=== PATIENT | male | born 1965 | race Caucasian/White ===

== ENCOUNTER 2018-05-21 09:31 | Emergency (ER) | payer OTHER ==
[2018-05-21 09:49] VITALS: TEMP 98; BMI 31.6
--- NOTE | 2018-05-21 10:17 | PDOC ---
History of Present Illness - General Chief Complaint: Hematuria Stated Complaint: BLOOD IN URINE Time Seen by Provider: 05/21/18 10:17 Past History - Past Medical History Allergies/Adverse Reactions: Allergies Allergy/AdvReac Type Severity Reaction Status Date / Time No Known Allergies Allergy Verified 05/21/18 09:44 Home Medications: Ambulatory Orders No Home Medications 0 dose .ROUTE UTDICT 05/21/12 Asthma: No COPD: No Diabetes: No HTN: No Other medical history: blood in ejaculate - Suicide/Smoking/Psychosocial Hx Smoking Status: No Smoking History: Never smoked Number of Cigarettes Smoked Daily: 0 Drug/Substance Use Hx: No *Physical Exam - Vital Signs Last Vital Signs Temp Pulse Resp BP Pulse Ox 98 F 78 16 128/69 97 05/21/18 09:48 05/21/18 09:48 05/21/18 09:48 05/21/18 09:48 05/21/18 09:48
--- NOTE | 2018-05-21 11:12 | PDOC ---
History of Present Illness - General Chief Complaint: Hematuria Stated Complaint: BLOOD IN URINE Time Seen by Provider: 05/21/18 10:17 - History of Present Illness Initial Comments: 05/21/18 11:08 53 M with no PMH presents to ED with hematuria and lower back pain. Pt states that his hematuria started about 6 weeks ago when he noticed blood in his urine and in his ejaculate. He saw his PMD, who ordered bloodwork, UA, and scrotal US. He states that this was all normal. His symptoms cleared up on their own, but over the past 3 days he began to notice blood in his urine again. He states that when he urinates, blood comes out first, followed by urine. Denies any flank pain but states that he has pressure and a "fullness" in his sacrum near his tailbone. Denies any h/o prostate problems. Pt denies dysuria. Denies h/o STD. Not sexually active at this time. Past History - Past Medical History Allergies/Adverse Reactions: Allergies Allergy/AdvReac Type Severity Reaction Status Date / Time No Known Allergies Allergy Verified 05/21/18 09:44 Home Medications: Ambulatory Orders No Home Medications 0 dose .ROUTE UTDICT 05/21/12 Asthma: No COPD: No Diabetes: No HTN: No Other medical history: blood in ejaculate - Suicide/Smoking/Psychosocial Hx Smoking Status: No Smoking History: Never smoked Number of Cigarettes Smoked Daily: 0 Drug/Substance Use Hx: No Review of Systems - Review of Systems Comments:: 05/21/18 11:10 GENERAL/CONSTITUTIONAL: No fever or chills. No weakness. HEAD, EYES, EARS, NOSE AND THROAT: No change in vision. No ear pain or discharge. No sore throat. CARDIOVASCULAR: No chest pain, no shortness of breath, no loss of consciousness RESPIRATORY: No cough, wheezing, or hemoptysis. GASTROINTESTINAL: No nausea, vomiting, diarrhea or constipation. GENITOURINARY: + hematuria MUSCULOSKELETAL: No joint or muscle swelling or pain. No neck or back pain. SKIN: No rash NEUROLOGIC: No vertigo, no change in strength/sensation. ENDOCRINE: No increased thirst. No abnormal weight change. HEMATOLOGIC/LYMPHATIC: No anemia, easy bleeding, or history of blood clots. ALLERGIC/IMMUNOLOGIC: No hives or skin allergy. *Physical Exam - Vital Signs Last Vital Signs Temp Pulse Resp BP Pulse Ox 98 F 78 16 128/69 97 05/21/18 09:48 05/21/18 09:48 05/21/18 09:48 05/21/18 09:48 05/21/18 09:48 - Physical Exam Comments: 05/21/18 11:11 "GENERAL: Awake, alert, and fully oriented, in no acute distress. HEAD: No signs of trauma EYES: PERRLA, EOMI, sclera anicteric, conjunctiva clear ENT: Auricles normal inspection, hearing grossly normal, nares patent, oropharynx clear without exudates. Moist mucosa NECK: Nontender, no stepoffs, Normal ROM, supple, no lymphadenopathy, JVD, or masses LUNGS: Breath sounds equal, clear to auscultation bilaterally. No wheezes, and no crackles HEART: Regular rate and rhythm, normal S1 and S2, no murmurs, rubs or gallops ABDOMEN: Soft, nontender, normoactive bowel sounds. No guarding, no rebound. No masses EXTREMITIES: Normal range of motion, no edema. No clubbing or cyanosis. No cords, erythema, or tenderness NEUROLOGICAL: Cranial nerves II through XII intact. 5/5 strength and sensation in all extremities, Normal speech, normal gait, normal cerebellar function SKIN: Warm, Dry, normal turgor, no rashes or lesions noted. : circumcised penis, normal scrotum, no tenderness or swelling, no masses, normal cremasteric reflex, no inguinal hernia RECTAL: enlarged prostate without bogginess or tenderness ED Treatment Course - LABORATORY CBC & Chemistry Diagram: 05/21/18 12:30 05/21/18 12:30 - RADIOLOGY Radiology Studies Ordered: Category Date Time Status ABDOMEN & PELVIS CT WITH CONTR [CT] Stat CT Scan 05/21/18 11:04 Ordered Medical Decision Making - Medical Decision Making 05/21/18 11:11 53 M with hematuria and lower back pain. Exam with normal scrotal exam but enlarged prostate. Possible malignancy vs infectious process. - Labs, UA, UCx - HIV, GC/CT - CTAP w/ IV contrast 05/21/18 13:54 Labs wnl, pending CT 05/21/18 17:54 CT shows L adrenal nodule, hepatic cyst, L renal cyst Will give pt PMD and urology f/u Pt is well appearing, with normal vitals. Clinically stable for DC at this time. I discussed the physical exam findings, ancillary test results and final diagnoses with the patient. I answered all of the patient's questions. The patient was satisfied with the care received and felt comfortable with the discharge plan and treatment plan. The patient agrees to follow up with the primary care physician within 24-72 hours. *DC/Admit/Observation/Transfer Diagnosis at time of Disposition: Hematuria - Discharge Dispostion Disposition: HOME - Referrals Referrals: Agustin Dos Santos MD [Primary Care Provider] - Mickey Simmons MD [Staff Physician] - - Patient Instructions Printed Discharge Instructions: DI for Hematuria Additional Instructions: Your CT scan today showed a cyst in your liver, as well as a cyst and a nodule in your left kidney. While these are most likely benign, you must follow up with your primary doctor to have these monitored over time. Please follow up with a urologist for further evaluation of the blood in your urine. This can sometimes be a sign of cancer. Call the number provided to make an appointment. If you experience any fevers, pain with urination, abdominal or flank pain, or any other concerning symptoms, return to the ER immediately. - Post Discharge Activity Forms/Work/School Notes: Back to Work - Attestations Physician Attestion: 05/21/18 17:56 I, Dr. Jeffrey Stoddard MD, attest that this document has been prepared under my direction and personally reviewed by me in its entirety. I further attest, that it accurately reflects all work, treatment, procedures and medical decision -making performed by me.
[2018-05-21 12:47] LABS: BASO % 0.7 % (0-2.0); EOS % 1.7 % (0-4.5); HEMATOCRIT 44.4 % (35.4-49); HEMOGLOBIN 15.1 GM/dL (11.7-16.9); LYMPH % 24.4 % (8-40); MCH 29.4 pg (25.7-33.7); MEAN CELL VOLUME 86.5 fl (80-96); MEAN PLT VOLUME 8.3 fl (7.5-11.1); MONO % 6.9 % (3.8-10.2); NEUT % 66.3 % (42.8-82.8); PLATELET COUNT 193 K/MM3 (134-434); RBC 5.14 M/mm3 (4.00-5.60); RDW 13.8 % (11.9-15.9); WHITE BLOOD COUNT 6.7 K/mm3 (4.0-10.0)
[2018-05-21 13:18] LABS: ALBUMIN 3.9 g/dl (3.4-5.0); ALK PHOS 49 U/L (45-117); ANION GAP 6 MMOL/L (8-16); BILIRUBIN,TOTAL 0.8 mg/dL (0.2-1); BLOOD UREA NITROGEN 18 mg/dL (7-18); CALCIUM 9.2 mg/dL (8.5-10.1); CHLORIDE 108 mmol/L (98-107); CO2 27 mmol/L (21-32); CREATININE 0.9 mg/dL (0.55-1.3); GLUCOSE,RANDOM 83 mg/dL (74-106); POTASSIUM 4.5 mmol/L (3.5-5.1); SGOT/AST 24 U/L (15-37); SGPT/ALT 55 U/L (13-61); SODIUM 141 mmol/L (136-145); TOT PROT 6.8 g/dl (6.4-8.2)
[2018-05-21 13:35] LABS: EPI CELLS 0.3 /HPF (0-5); URINE APPEARANCE CLEAR; URINE BACTERIA 0.5 /hpf (NEGATIVE); URINE BILIRUBIN NEGATIVE (NEGATIVE); URINE CASTS 0 /hpf (0-8); URINE COLOR YELLOW; URINE GLUCOSE (UA) NEGATIVE (NEGATIVE); URINE KETONE NEGATIVE (NEGATIVE); URINE LEUK ESTERASE NEGATIVE (NEGATIVE); URINE NITRITE NEGATIVE (NEGATIVE); URINE PROTEIN NEGATIVE (NEGATIVE); URINE RBC 9 /hpf (0-4); URINE UROBILINOGEN 0.2 mg/dL (0.2-1.0); URINE WBC 1 /hpf (0-5)
[2018-05-21 18:43] VITALS: BP 134/57; PULSE 89
== END 2018-05-21 18:30 | disposition home or self-care (01) ==
LOC: JER 09:31
DX: R31.9 Hematuria, unspecified (principal); N28.1 Cyst of kidney, acquired; K76.89 Other specified diseases of liver
CPT/HCPCS: 36415; 74177-TC; 80053; 81003; 85025; 87086; 87389; 99282-25

== ENCOUNTER 2023-10-30 13:33 | Emergency (ER) | payer OTHER ==
[2023-10-30 13:52] VITALS: BP 149/91; PULSE 79; RESP 20; TEMP 98; BMI 31.9
== END 2023-10-30 15:03 | disposition home or self-care (01) ==
LOC: FER 13:33
DX: L03.012 Cellulitis of left finger (principal)
CPT/HCPCS: 99283-25